=== PATIENT | female | born 1960 | race Caucasian/White ===

== ENCOUNTER 2016-07-29 15:41 | Observation (INO) | payer BC, OTHER ==
[~2016-07-29] VITALS: Ht 154.9 cm; Wt 100.0 kg
[~2016-07-29 15:41] MED LIST: ASPI-94 PO; AUGM875T PO; BACT800T5 PO; CLAR10TA7 PO; HYDR-2768 PO; HYDR-3533 PO; METO50 PO; OMPR20CCR PO; SYNT175T; TAB-TAB PO; ZYRT10TA12 PO
[2016-07-29 15:42] VITALS: BP 177/97; PULSE 72; RESP 20; TEMP 98.1; O2SAT 98
--- NOTE | 2016-07-29 19:45 | RADRPT ---
EXAM DATE/TIME: 07/29/2016 19:41 [place] COMPARISON: No previous studies available for comparison. INDICATIONS : Palpitations MEDICAL HISTORY : None. SURGICAL HISTORY : None. ENCOUNTER: Initial ACUITY: 3 days PAIN SCORE: 0/10 LOCATION: chest FINDINGS: A single view of the chest demonstrates the lungs to be symmetrically aerated without evidence of mas s, infiltrate or effusion. The cardiomediastinal contours are unremarkable. Osseous structures are intact. CONCLUSION: No acute disease. José Antonio Parker MD on July 29, 2016 at 19:43 Board Certified Radiologist. This report was verified electronically.
[2016-07-29] MEDS ORDERED: SYNT175T PO (19:54)
[2016-07-29] MEDS ORDERED: ASPI81TA11 PO (19:54)
[2016-07-29] MEDS ORDERED: METO25TA3 PO (19:54)
[2016-07-29] MEDS ORDERED: AMLO5TAB2 PO (19:54)
[2016-07-29] MEDS ORDERED: FLUT1SPR5 EACH NARE (19:54)
[2016-07-29] MEDS ORDERED: OMEP20CA2 PO (19:54)
[2016-07-29] MEDS ORDERED: ALAV10TA10 PO (19:54)
[2016-07-29] MEDS ORDERED: METO50TA PO (19:54)
[2016-07-29] MEDS ORDERED: HYDR25TA5 PO (19:54)
--- NOTE | 2016-07-29 19:56 | PD ---
HPI Chief Complaint: Chest Pain Time Seen by Provider: 19:52 Travel History International Travel<30 days: No Contact w/Intl Traveler<30days: No Traveled to known affect area: No History of Present Illness HPI 56-year-old female that presents to the ED for evaluation of palpitations and some chest discomfort for the past week and. Per patient's symptoms started on Friday. Per patient it comes and goes. Per patient she feels like she skips a beat and her heart rate changes from time to time. She states that she was recently changed on her blood pressure medications. Per patient she is to take metoprolol 50 mg twice a day. Apparently she was complaining of some weakness secondary to the possible medication and they change her medication to metoprolol 50 mg at night and 25 mg during the morning as well as amlodipine 5 mg. She states this happened at the beginning of this month and has not had issues until this weekend. She states that she has no actual chest pain but some chest discomfort, like a pressure sensation on her chest. Per patient she' s not sure if this is anxiety related or related to what happening at this time. She does have a history of thyroid disease. She has no allergies to medication. She denies taking anything for this. She denies any fevers chills or sweats. No cough or runny nose. No abdominal pain. No nausea or vomiting. No urinary issues. She states the symptoms worsened today and this is what concerned her so she came here today. Patient states that her discomfort is 2 out of 10. She has a history of hypertension and family history of heart disease. PFSH Past Medical History Diminished Hearing: No GERD: Yes Hypertension: Yes Psychiatric: Yes Immunizations Current: Yes Thyroid Disease: Yes ?: Not Menopausal: Yes Social History Alcohol Use: Yes (SOCIAL) Tobacco Use: No Substance Use: No Allergies-Medications (Allergen,Severity, Reaction): Coded Allergies: No Known Allergies (Verified , 11/26/14) Reported Meds & Prescriptions Reported Meds & Active Scripts Active Reported Aspirin EC (Aspirin) 81 Mg Tabdr 81 Mg PO DAILY Hydrochlorothiazide 25 Mg Tab 25 Mg PO DAILY Alavert (Loratadine) 10 Mg Tab 10 Mg PO DAILY Metoprolol Tartrate 50 Mg Tab 50 Mg PO HS Metoprolol Tartrate 25 Mg Tab 25 Mg PO DAILY Omeprazole 20 Mg Cap 20 Mg PO DAILY Synthroid (Levothyroxine Sodium) 175 Mcg Tab 175 Mcg PO DAILY Amlodipine (Amlodipine Besylate) 5 Mg Tab 5 Mg PO DAILY Flonase Nasal [place] (Fluticasone Nasal [place]) 50 Mcg/Act [place] 2 [place] EACH NARE DAILY Review of Systems General / Constitutional: No: Fever, Chills, Weight Gain, Weight Loss, Other Eyes: No: Diploplia, Blurred Vision, Photophobia, Drainage, Redness, Foreign Body Sensation, Pain, Tearing, Blind Spots, Visual changes, Blindness, Other HENT: No: Headaches, Vertigo, Lightheadedness, Sore Throat, Rhinitis, Rhinorrhea, Congestion, Nosebleed, Neck Stiffness, Neck Pain, Masses, Gingival Bleeding, Dental Difficulties, Ear Discharge, Earache, Other Cardiovascular: Positive: Chest Pain or Discomfort, Palpitations, Irregular Rhythm, No: Tachycardia, Diaphoresis, Syncope, Dyspnea on exertion, Varicosities, Edema, Cyanosis, Varicosities, Phlebitis, Claudication, Other Respiratory: No: Cough, Shortness of Breath, Wheezing, Sneezing, Orthopnea, Hemoptysis, Stridor, Night Sweats, Pleuritic Pain, Other Gastrointestinal: No: Nausea, Vomiting, Diarrhea, Abdominal Pain, Hematemesis, Hematochezia, Constipation, Changes in Bowel Habits, Indigestion, Dysphagia, Loss of Appetite, Other Genitourinary: No: Urgency, Frequency, Dysuria, Nocturia, Hematuria, Decreased Urinary Output, Oliguria, Hesitancy, Dribbling, Incontinence, Pelvic Pain, Flank Pain, Dyspareunia, Discharge, Dysmenorrhea, Menorrhagia, Metorrhagia, Vaginal Bleeding, Other Musculoskeletal: No: Myalgias, Arthralgias, Limited ROM, Weakness, Cramping, Edema, Pain, Atrophy, Other Skin: No Rash, No Itching, No Dryness, No Lumps, No Hives, No Change in Pigmentation, No Change in nails, No Alopecia, No Lesions, No Breast Lumps, No Breast Tenderness, No Breast Swelling, No Other Neurologic: No: Weakness, Dizziness, Syncope, Focal Abnormalities, Coordination Problem, Tremor, Ataxia, Headache, Change in Mentation, Slurred Speech, Paresthesia, Incontinence, Seizures, Sensory Disturbance, Other Psychiatric: No: Anxiety, Depression, Suicidal Ideations, Disorder of Thought, Mood Disorder, Substance Abuse, Homicidal Ideation, Other Endocrine: No: Heat Intolerance, Cold Intolerance, Polyuria, Polydipsia, Other Hematologic/Lymphatic: No: Easy Bruising, Lymph Node Enlargement, Other Physical Exam Narrative GENERAL: SKIN: Warm and dry. HEAD: Atraumatic. Normocephalic. EYES: Pupils equal and round. No scleral icterus. No injection or drainage. ENT: No nasal bleeding or discharge. Mucous membranes pink and moist. Tongue is midline. No uvula deviation. NECK: Trachea midline. No JVD. CARDIOVASCULAR: Regular rate and rhythm. Some PVCs noted but not all the time. No murmurs, S3, S4. RESPIRATORY: No accessory muscle use. Clear to auscultation. Breath sounds equal bilaterally. GASTROINTESTINAL: Abdomen soft, non-tender, nondistended. Hepatic and splenic margins not palpable. MUSCULOSKELETAL: Extremities without clubbing, cyanosis, or edema. No obvious deformities. Full range of motion of the upper and lower extremities bilaterally. 2+ pulses bilaterally. NEUROLOGICAL: Awake and alert. No obvious cranial nerve deficits. Motor grossly within normal limits. Five out of 5 muscle strength in the arms and legs. Normal speech. PSYCHIATRIC: Appropriate mood and affect; insight and judgment normal. Data Data Last Documented VS Vital Signs Date Time Temp Pulse Resp B/P Pulse Ox O2 Delivery O2 Flow Rate FiO2 07/29/16 15:42 98.1 72 20 177/97 98 Room Air Orders Electrocardiogram (07/29/16 ) Complete Blood Count With Diff (07/29/16 19:32) Basic Metabolic Panel (Bmp) (07/29/16 19:32) Troponin I (07/29/16 19:32) Magnesium (Mg) (07/29/16 19:32) Thyroid Stimulating Hormone (07/29/16 19:32) Chest, Single Ap (07/29/16 19:32) Ecg Monitoring (07/29/16 19:32) Oximetry (07/29/16 19:32) Aspirin (Aspirin) (07/29/16 21:00) Admit Order (Ed Use Only) (07/29/16 21:08) Labs Laboratory Tests Test 07/29/16 19:50 White Blood Count 10.4 TH/MM3 Red Blood Count 5.16 MIL/MM3 Hemoglobin 14.2 GM/DL Hematocrit 42.2 % Mean Corpuscular Volume 81.8 FL Mean Corpuscular Hemoglobin 27.6 PG Mean Corpuscular Hemoglobin 33.7 % Concent Red Cell Distribution Width 16.6 % Platelet Count 249 TH/MM3 Mean Platelet Volume 9.2 FL Neutrophils (%) (Auto) 66.3 % Lymphocytes (%) (Auto) 27.0 % Monocytes (%) (Auto) 5.0 % Eosinophils (%) (Auto) 1.0 % Basophils (%) (Auto) 0.7 % Neutrophils # (Auto) 6.8 TH/MM3 Lymphocytes # (Auto) 2.8 TH/MM3 Monocytes # (Auto) 0.5 TH/MM3 Eosinophils # (Auto) 0.1 TH/MM3 Basophils # (Auto) 0.1 TH/MM3 CBC Comment DIFF FINAL Differential Comment Sodium Level 137 MEQ/L Potassium Level 3.5 MEQ/L Chloride Level 100 MEQ/L Carbon Dioxide Level 25.8 MEQ/L Anion Gap 11 MEQ/L Blood Urea Nitrogen 12 MG/DL Creatinine 0.96 MG/DL Estimat Glomerular Filtration 60 ML/MIN Rate Random Glucose 99 MG/DL Calcium Level 9.0 MG/DL Magnesium Level 2.1 MG/DL Troponin I LESS THAN 0.02 NG/ML Thyroid Stimulating Hormone 0.583 uIU/ML 3rd Gen [facility] Medical Decision Making Medical Screen Exam Complete: Yes Emergency Medical Condition: Yes Medical Record Reviewed: Yes Interpretation(s) CBC & BMP Diagram 07/29/16 19:50 troponin TSH WNL EKG shows sinus rhythm with no sign of acute ischemia or arrhytmia Differential Diagnosis PVCs versus arrhythmia versus palpitations versus ACS versus thyroid disease versus electrolyte abnormality Narrative Course 56-year-old female that presents to the ED for evaluation of palpitations. Patient was properly examined and was found to have signs and symptoms consistent appears to be palpitations. Unclear etiology at this time. Patient appears to be no acute distress. I did heard a couple what appears to be PVCs. EKG did not show any acute arrhythmia. At this time I recommend some labs and imaging. Patient is ago with this. We'll put her on a monitor and evaluate. Patient was given aspirin as this could also be a cardiac equivalent secondary to her being female. Case was discussed in my attending who recommends admission to the chest pain center to rule out ACS secondary to her risk factors and this could potentially being a cardiac equivalent. This was offered to the patient who agrees to admission. Patient does have risk factors including hypertension, family history of heart disease. Patient is agreeable with this plan. Diagnosis Primary Impression: Chest pain in adult Admitting Information Admitting Physician Requests: Observation Lenard Naylor Jul 29, 2016 19:56
[2016-07-29 20:11] LABS: AUTOMATED NEUTROPHIL # 6.8 TH/MM3 (1.8-7.7); BASOPHIL # 0.1 TH/MM3 (0-0.2); BASOPHIL % 0.7 % (0.0-2.0); EOSINOPHIL # 0.1 TH/MM3 (0-0.4); HEMATOCRIT 42.2 % (35.0-46.0); HEMO FLAGS DIFF FINAL; LYMPHOCYTE # 2.8 TH/MM3 (1.0-4.8); MEAN CELL VOLUME 81.8 FL (80.0-100.0); MEAN CORPUSCULAR HEMOGLOBIN 27.6 PG (27.0-34.0); MEAN CORPUSCULAR HGB CONC 33.7 % (32.0-36.0); NEUT % 66.3 % (16.0-70.0); PLATELET COUNT 249 TH/MM3 (150-450); RED BLOOD COUNT 5.16 MIL/MM3 (4.00-5.30); RED CELL DISTRIBUTION WIDTH 16.6 % (11.6-17.2); WHITE BLOOD COUNT 10.4 TH/MM3 (4.0-11.0)
[2016-07-29 20:45] LABS: ANION GAP 11 MEQ/L (5-15); BICARBONATE 25.8 MEQ/L (21.0-32.0); BLOOD UREA NITROGEN 12 MG/DL (7-18); CHLORIDE 100 MEQ/L (98-107); GLOMERULAR FILTRATION RATE 60 ML/MIN (>89); MAGNESIUM 2.1 MG/DL (1.5-2.5); POTASSIUM 3.5 MEQ/L (3.5-5.1); SODIUM (NA) 137 MEQ/L (136-145)
[2016-07-29 21:00] VITALS: BP 136/80; PULSE 84; RESP 16; O2SAT 98
[2016-07-29] MEDS ORDERED: ASPIRIN 325 MG TAB PO ONE (21:00)
[2016-07-29] MEDS ORDERED: ACETAMINOPHEN 500 MG CPLT PO PRN (21:15)
[2016-07-29] MEDS ORDERED: METOPROLOL TARTRATE 50 MG TAB PO ONE (21:15)
[2016-07-29] MEDS ORDERED: LORazepam 0.5 MG TAB PO ONE (21:15)
[2016-07-29] MEDS ORDERED: ONDANSETRON HCL 4 MG/2 ML VIAL IV PRN (21:15)
[2016-07-29] MEDS ORDERED: SODIUM CHLORIDE 0.9% FLUSH 10 ML FLUSH IV FLUSH PRN (21:15)
[2016-07-29 22:00] VITALS: BP 150/78; PULSE 77; RESP 16; O2SAT 97
[2016-07-29 23:28] LABS: CREATINE KINASE 60 U/L (26-192)
[2016-07-29 23:39] VITALS: BP 117/77; PULSE 67; RESP 18; TEMP 97.8; O2SAT 97
[2016-07-30] VITALS: PULSE 64
[2016-07-30 03:42] LABS: CREATINE KINASE 62 U/L (26-192)
[2016-07-30 04:41] VITALS: PULSE 53
[2016-07-30 05:17] VITALS: BP 133/81; PULSE 78; RESP 18; TEMP 98.8; O2SAT 98
--- NOTE | 2016-07-30 07:55 | HHI.HP ---
[facility] Primary Care Physician Felicia Berrios MD Chief Complaint Palpitations History of Present Illness This is a 56-year-old female that presents to ED via private vehicle with a complaint of sensations in her chest that are described and palpitations. Denies chest pain. She has 2 different chest sensations that are associated with her palpitations. One is in the center of her chest and has been constantly there for 4 days. She noticed it while at a friend's after drinking a few glasses of wine. She also has had an intermittent sensation little bit below that and she points to the subxiphoid/epigastric region states has been intermittent for 2 weeks. Hard time describing how long it lasts. Found nothing to bring on but states that bending forward sometimes worsens it. She then states "I think it might be stress. Anemia metoprolol and Xanax in the emergency department and now everything is gone." She states she's having the palpitations sensation which she describes as skipping beats while in the ER. She points that out to the staff in the ER and they saw PVCs on the monitor when that was occurring. Denies recent illness. Denies fevers or chills. She also thinks that the palpitations may be because of medication change. She was on metoprolol tartrate 50 mg twice daily and hydrochlorothiazide 25 mg once a day but was just feeling tired all the time. Her primary care physician changed her medication June to metoprolol 50 mg in the morning and 25 mg at night and amlodipine 5 mg in the morning. It did not help her energy level. Review of Systems General: Patient denies fevers, chills recent, and recent travel HEENT: Patient denies headache, sore throat, difficulty swallowing. Cardiovascular: Has the chest discomfort as mentioned above. States she has felt palpitations and she describes it as skipping beats. She states the ED staff noticed PVCs on the monitor when she was discussing her symptoms. No syncope. Denies diaphoresis. Respiratory: Denies shortness of breath or inspirational chest discomfort. Denies coughing wheezing or hemoptysis. GI: Patient denies nausea, vomiting, diarrhea, abdominal pain, bloody stools. Musculoskeletal: Patient denies joint pain or edema. Denies calf pain or edema. Neurovascular: Patient denies numbness, tingling, weakness in extremities. Denies headache. Endocrine: Denies polyuria and polydipsia. Hematologic: Denies easy bruising. Skin: Denies rash or itching. Past Family Social History Allergies: Coded Allergies: No Known Allergies (Verified , 07/29/16) Past Medical History Hypertension, hypothyroidism, recently told she had hyperlipidemia but not placed on medication yet. 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 Past Surgical History Right eye removed secondary to melanoma. Reported Medications Reported Meds & Active Scripts Active Reported Aspirin EC (Aspirin) 81 Mg Tabdr 81 Mg PO DAILY Hydrochlorothiazide 25 Mg Tab 25 Mg PO DAILY Alavert (Loratadine) 10 Mg Tab 10 Mg PO DAILY Metoprolol Tartrate 50 Mg Tab 50 Mg PO HS Metoprolol Tartrate 25 Mg Tab 25 Mg PO DAILY Omeprazole 20 Mg Cap 20 Mg PO DAILY Synthroid (Levothyroxine Sodium) 175 Mcg Tab 175 Mcg PO DAILY Amlodipine (Amlodipine Besylate) 5 Mg Tab 5 Mg PO DAILY Flonase Nasal [place] (Fluticasone Nasal [place]) 50 Mcg/Act [place] 2 [place] EACH NARE DAILY Active Ordered Medications Current Medications Medications (Trade) Dose Ordered Sig/Iggy Route Start Time Stop Time Status Last Admin (NS Flush) 2 ml UNSCH PRN IV FLUSH 07/29/16 21:15 (NS Flush) 2 ml BID IVF 07/30/16 09:00 (Tylenol) 500 mg Q4H PRN PO 07/29/16 21:15 (Zofran Inj) 4 mg Q6H PRN IV 07/29/16 21:15 Family History Her father developed congestive heart failure in his late 60s and lived to be 76. She is unaware him having MIs or other cardiac issues prior. Social History Patient is a lifetime nonsmoker. Has occasional alcohol. Denies illicit drugs. Her daughter and her baby live with her. Physical Exam Vital Signs Vital Signs Date Time Temp Pulse Resp B/P Pulse Ox O2 Delivery O2 Flow Rate FiO2 07/30/16 05:17 98.8 78 18 133/81 98 07/30/16 04:41 53 07/30/16 00:00 64 07/29/16 23:39 97.8 67 18 117/77 97 07/29/16 22:00 77 16 150/78 97 Room Air 07/29/16 21:00 84 16 136/80 98 Room Air 07/29/16 15:42 98.1 72 20 177/97 98 Room Air Physical Exam GENERAL: This is a well-nourished, well-developed patient, in no apparent distress. Patient speaks in clear complete sentences. Patient is pleasant. HEENT: Head is atraumatic and normocephalic. Neck is supple without lymphadenopathy and trachea is midline. No JVD or carotid bruits. CARDIOVASCULAR: Regular rate and rhythm without murmurs, gallops, or rubs. RESPIRATORY: Clear to auscultation. Breath sounds equal bilaterally. No wheezes , rales, or rhonchi. Chest wall is nontender. No use of accessory muscles. GASTROINTESTINAL: Abdomen is nontender, nondistended. Abdomen soft. No obvious pulsatile mass or bruit. No CVA tenderness. Strong femoral pulses bilaterally. Normal bowel sounds in all quadrants. MUSCULOSKELETAL: Patient is moving upper and lower extremities freely. No calf tenderness or edema, no Homans sign. Strong pulses in upper and lower extremities. NEUROLOGICAL: Patient is alert and oriented. Cranial nerves 2-12 are grossly intact. No focal deficits and speech is clear. SKIN: No rash and turgor is normal. Laboratory Laboratory Tests Test 07/29/16 07/29/16 07/30/16 19:50 22:50 02:50 White Blood Count 10.4 Red Blood Count 5.16 Hemoglobin 14.2 Hematocrit 42.2 Mean Corpuscular Volume 81.8 Mean Corpuscular Hemoglobin 27.6 Mean Corpuscular Hemoglobin 33.7 Concent Red Cell Distribution Width 16.6 Platelet Count 249 Mean Platelet Volume 9.2 Neutrophils (%) (Auto) 66.3 Lymphocytes (%) (Auto) 27.0 Monocytes (%) (Auto) 5.0 Eosinophils (%) (Auto) 1.0 Basophils (%) (Auto) 0.7 Neutrophils # (Auto) 6.8 Lymphocytes # (Auto) 2.8 Monocytes # (Auto) 0.5 Eosinophils # (Auto) 0.1 Basophils # (Auto) 0.1 CBC Comment DIFF FINAL Differential Comment Sodium Level 137 Potassium Level 3.5 Chloride Level 100 Carbon Dioxide Level 25.8 Anion Gap 11 Blood Urea Nitrogen 12 Creatinine 0.96 Estimat Glomerular Filtration 60 Rate Random Glucose 99 Calcium Level 9.0 Magnesium Level 2.1 Troponin I LESS THAN 0.02 LESS THAN 0.02 LESS THAN 0.02 Thyroid Stimulating Hormone 0.583 3rd Gen Total Creatine Kinase 60 62 Result Diagram: 07/29/16194907/29/161949 Imaging Last 24 hours Impressions Chest X-Ray 07/29/16 1932 Signed Impressions: Service Date/Time: Friday, July 29, 2016 19:41 - CONCLUSION: No acute disease. José Antonio Parker MD Course EKG is a sinus rhythm and sinus bradycardia without significant ST segment depressions or elevations. Assessment and Plan Assessment and Plan * Palpitations Patient had serial cardiac enzymes and EKGs for ruling out purposes. She denies chest pain. She was complaining of sensations in her chest and palpitations which she states the ED staff was able to correlate her palpitations with PVCs on the monitor. All of her symptoms improved after getting Xanax and metoprolol in the ED. She was seen by Dr. Dumont in the chest pain center. Her metoprolol will be returned back to 50 mg twice a day. We will continue the amlodipine and HCTZ as she was on prior to coming to the hospital. * Hypertension: Return metoprolol to 50 every 12 hours. Continue amlodipine and hydrochlorothiazide. * Hypothyroidism: Continue current medication. TSH is normal. * GERD: Continue current medication. Sd Christianson Jul 30, 2016 07:55
[2016-07-30] MEDS ORDERED: METO50TA PO (08:52)
--- NOTE | 2016-07-30 08:52 | HHI.DCPOC ---
Discharge Care Plan Diagnosis: (1) Palpitations (2) Hypertension (3) Hypothyroidism (4) GERD (gastroesophageal reflux disease) Goals to Promote Your Health * To prevent worsening of your condition and complications * To maintain your health at the optimal level Directions to Meet Your Goals Take your medications as prescribed Follow your dietary instruction Follow activity as directed Keep your appointments as scheduled Take your immunizations and boosters as scheduled If your symptoms worsen call your PCP, if no PCP go to Urgent Care Center or Emergency Room Smoking is Dangerous to Your Health. Avoid second hand smoke Call the 24-hour hour crisis hotline for domestic abuse at Sd Christianson Jul 30, 2016 08:52
[2016-07-30 08:54] VITALS: BP 110/74; PULSE 62; RESP 17; TEMP 97.8; O2SAT 95
[2016-07-30] MEDS ORDERED: HYDROCHLOROTHIAZIDE 25 MG TAB PO SCH (09:00)
[2016-07-30] MEDS ORDERED: ASPIRIN EC 81 MG TABEC PO SCH (09:00)
[2016-07-30] MEDS ORDERED: SODIUM CHLORIDE 0.9% FLUSH 10 ML FLUSH IVF SCH (09:00)
[2016-07-30] MEDS ORDERED: amLODIPine BESYLATE 5 MG TAB PO SCH (09:00)
[2016-07-30 10:25] VITALS: O2SAT 96
[2016-07-30] MEDS ORDERED: METOPROLOL TARTRATE 50 MG TAB PO SCH (10:40)
[2016-07-30] MEDS ORDERED: LEVOTHYROXINE SODIUM 25 MCG TAB PO SCH (11:00)
[2016-07-30] MEDS ORDERED: PANTOPRAZOLE SOD 20 MG DELAYED RELEASE TAB PO SCH (11:00)
[2016-07-30] MEDS ORDERED: LEVOTHYROXINE SODIUM 150 MCG TAB PO SCH (11:00)
--- NOTE | 2016-07-30 16:51 | EKG ---
Date Performed: 07/29/2016 Time Performed: 16:13:33 PTAGE: 56 years EKG: Sinus rhythm NORMAL ECG NO PREVIOUS TRACING DOCTOR: Verito Dumont Interpretating Date/Time 07/30/2016 16:51:22
--- NOTE | 2016-07-30 16:54 | EKG ---
Date Performed: 07/29/2016 Time Performed: 22:51:09 PTAGE: 56 years EKG: Sinus rhythm NORMAL ECG Since PREVIOUS TRACING , no significant change noted PREVIOUS TRACIN07/29/2016 16.13 DOCTOR: Verito Dumont Interpretating Date/Time 07/30/2016 16:53:07
--- NOTE | 2016-07-30 16:54 | EKG ---
Date Performed: 07/30/2016 Time Performed: 03:02:53 PTAGE: 56 years EKG: SINUS BRADYCARDIA BORDERLINE ECG Since PREVIOUS TRACING , no significant change noted PREVIOUS TRACIN07/29/2016 22.51 DOCTOR: Verito Dumont Interpretating Date/Time 07/30/2016 16:53:20
== END 2016-07-30 12:51 | disposition home or self-care (01) ==
LOC: NEPE 15:41 → NEDA 21:10 → NEPGCP 23:04
PROVIDERS: ADMIT Internal Medicine Cardiovascular Disease; ATTEND Internal Medicine Cardiovascular Disease
DX: R07.9 Chest pain, unspecified (principal); R00.2 Palpitations; Z79.899 Other long term (current) drug therapy; R53.1 Weakness; Z82.49 Family history of ischemic heart disease and other diseases of the circulatory system; I10 Essential (primary) hypertension; K21.9 Gastro-esophageal reflux disease without esophagitis; Z90.01 Acquired absence of eye; Z85.820 Personal history of malignant melanoma of skin; E78.5 Hyperlipidemia, unspecified; E03.9 Hypothyroidism, unspecified; R00.1 Bradycardia, unspecified
CPT/HCPCS: 71010; 80048; 82550; 83735; 84443; 84484; 85025; 93005; 99285; G0378